=== PATIENT | female | born 1965 | race African-American/Black ===

== ENCOUNTER 2016-08-04 07:13 | Outpatient (CLI) | payer OTHER ==
[2015-03-24 11:16] VITALS: BP 165/98
== END 2016-08-04 07:14 ==
LOC: ENT 07:13 → LAB 07:14
PROVIDERS: ATTEND Family Medicine
DX: E11.9 Type 2 diabetes mellitus without complications (principal)
CPT/HCPCS: 36415; 83036

== ENCOUNTER 2016-08-04 13:39 | Outpatient (CLI) | payer OTHER ==
[2015-03-24 11:16] VITALS: BP 165/98
--- NOTE | 2016-08-05 13:50 | OP Clinic Progress Note ---
REFERRING PHYSICIAN: Dr. Jonn Sabillon REASON FOR VISIT: Harper is seen with a history of about 3 months of right-sided ear discomfort and throbbing pain. She states that the hearing has not changed at all. Her balance does not seem to be changed or worsened. Her neck is not particularly painful or stiff. It has come and gone. She had her right ear washed out and it seemed to be moderately improved after that. The symptoms have returned and she took a course of antibiotics and, again, was moderately improved. Using a microscopic otoscope, she does still have some wax in the meatus. Palpation of the temporomandibular joints elicits no significant pain or discomfort and certainly not unilateral on the right side. I cleaned some wax from the ear canal. This, itself, was not particularly tender. There was mild erythema of the canal but there is no other real exudate. The right ear drum is somewhat stiffened. IMPRESSION AND PLAN: Clinically, she has a mild lateral otitis externa. I recommended some alcohol rubbing drops, 91%. I cleaned the ear with 91% alcohol at this office setting. It is possible she could have more of a tensor tight eardrum that is causing the symptoms, but the early evidence would indicate mild otitis externa. Alcohol drops are a good cleaning agent. She will use those for several weeks to a month to see if there is some improvement. If she is not better, I am happy to re-evaluate her for other etiologies. cc: Dr. Jonn PARKER
== END 2016-08-04 13:40 ==
LOC: ENT 13:39
PROVIDERS: ATTEND Otolaryngology
DX: H60.91 Unspecified otitis externa, right ear (principal)
CPT/HCPCS: 99213

== ENCOUNTER 2017-01-10 07:15 | Outpatient (CLI) | payer OTHER ==
[2015-03-24 11:16] VITALS: BP 165/98
== END 2017-01-10 07:16 ==
LOC: LAB 07:15
PROVIDERS: ATTEND Family Medicine
DX: E11.9 Type 2 diabetes mellitus without complications (principal)
CPT/HCPCS: 36415; 83036

== ENCOUNTER 2017-06-20 10:21 | Outpatient (CLI) | payer BC ==
[2015-03-24 11:16] VITALS: BP 165/98
[2017-06-20 11:13] LABS: eGFR (African) > 60; eGFR (Non-African) > 60
== END 2017-06-20 10:22 ==
LOC: LAB 10:21
PROVIDERS: ATTEND Family Medicine
DX: E11.9 Type 2 diabetes mellitus without complications (principal)
CPT/HCPCS: 36415; 80053; 82043; 83036

== ENCOUNTER 2017-07-15 13:10 | Outpatient (CLI) | payer OTHER ==
[2015-03-24 11:16] VITALS: BP 165/98
== END 2017-07-15 13:12 ==
LOC: POD 13:10
PROVIDERS: ATTEND Podiatrist
DX: E11.9 Type 2 diabetes mellitus without complications (principal); M20.21 Hallux rigidus, right foot; M20.22 Hallux rigidus, left foot; L60.3 Nail dystrophy
CPT/HCPCS: 99213

== ENCOUNTER 2018-06-21 07:26 | Outpatient (CLI) | payer OTHER ==
[2015-03-24 11:16] VITALS: BP 165/98
[2018-06-21 08:00] LABS: eGFR (Non-African) > 60
== END 2018-06-21 07:28 ==
LOC: LAB 07:26
PROVIDERS: ATTEND Family Medicine
DX: E11.9 Type 2 diabetes mellitus without complications (principal)
CPT/HCPCS: 36415; 80053; 80061; 82043; 83036

== ENCOUNTER 2018-10-09 10:36 | Day surgery (SDC) | payer OTHER ==
[2015-03-24 11:16] VITALS: BP 165/98
[~2018-10-09 10:36] MED LIST: LACTATED RINGERS 1,000 ML IV.SOLN IV ONE; LIDOCAINE HCL 2% PF 100MG/5ML VIAL IJ ONE; PROPOFOL 200 MG/20 ML VIAL IV ONE
--- NOTE | 2018-10-19 13:28 | GI Report ---
OPERATIVE/PROCEDURE REPORT PATIENT NAME: ANGEL TELLO DATE OF : 1965 CHART#: [id number] DATE OF PROCEDURE: 10/09/2018 REFERRING PHYSICIAN: Dr. Sabillon. PROCEDURE PERFORMED: Colonoscopy and cold forceps polypectomy. SURGEON: Royal Ferrari M.D., F.A.C.P. 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 She has a history of colon cancer, and a right colectomy by Dr. Ring in 2013. She comes for a surveillance follow-up colonoscopy. An aunt had colon cancer. Unfortunately, the patient is a cigarette smoker and continues to smoke. She is 54, weight is 193 lbs. PROCEDURE MEDICATION: Propofol, as per Anesthesia. DESCRIPTION OF PROCEDURE: An Olympus video colonoscope was advanced through the rectum. The prep was just fair. It took some maneuvering to get through the sigmoid. We were able to advance to the anastomosis of transverse colon and small bowel near the hepatic flexure. About 5 cm from there the patient had a 3 mm flat polyp, cold biopsy removed. The main part of the transverse colon, descending colon: Redundancy, no obvious intraluminal lesions noted. Sigmoid: Again, redundancy. No obvious intraluminal lesions noted. Retroflexion in the rectum shows internal hemorrhoid and some fresh blood there. The patient tolerated the procedure well. FINDINGS: 1. Previous right hemicolectomy. 2. Small polyp in the proximal transverse colon, cold biopsy removed. 3. Internal hemorrhoids. RECOMMENDATIONS: 1. Would increase fiber in the diet, add Metamucil or Benefiber. 2. Recommend discontinuing tobacco usage. 3. High risk; consider relook at her colon in 3 years since she has had previous colon cancer, and had polyp. ROYAL FERRARI M.D., F.A.C.P. JOHN/vielka Job#: [id number] Cc: Dr. Ridge PARKER
== END 2018-10-09 13:42 ==
LOC: OPSURG 10:36
PROVIDERS: ATTEND Internal Medicine Gastroenterology
DX: K63.5 Polyp of colon (principal); K63.89 Other specified diseases of intestine; K64.8 Other hemorrhoids; F17.210 Nicotine dependence, cigarettes, uncomplicated; Z85.038 Personal history of other malignant neoplasm of large intestine; Z90.49 Acquired absence of other specified parts of digestive tract; Z80.0 Family history of malignant neoplasm of digestive organs
CPT/HCPCS: 45380; 88305; J2001; J2704; J7120